=== PATIENT | female | born 2000 | race Caucasian/White ===

== ENCOUNTER 2018-03-07 14:51 | Emergency (ER) | payer OTHER ==
[2018-03-07] MEDS ORDERED: PROCHLORPERAZINE EDISYLATE INJ 10 MG/2 ML VIAL IV ONE (15:38)
[2018-03-07] MEDS ORDERED: NORMAL SALINE 500 ML IV ONE (15:38)
[2018-03-07] MEDS ORDERED: KETOROLAC TROMETHAMINE INJ/PF 30 MG/1 ML SDV IV ONE (15:38)
[2018-03-07] MEDS ORDERED: DIPHENHYDRAMINE HCL 50 MG/ML VIAL IV ONE (15:38)
--- NOTE | 2018-03-07 15:39 | ER Document Report ---
ED Medical Screen (RME) - General Chief Complaint: Headache Stated Complaint: HEADACHE,NAUSEA,DIZZINESS Time Seen by Provider: 03/07/18 15:29 Notes: 17-year-old female to the emergency department complaining of a "migraine". Long-standing history of migraines. Not the worst headache of her life. Did not come on suddenly. Has ache has been present on and off for most of the week. No other major symptoms at this time. I have greeted and performed a rapid initial assessment of this patient. A comprehensive ED assessment and evaluation of the patient, analysis of test results and completion of the medical decision making process will be conducted by additional ED providers. TRAVEL OUTSIDE OF THE [place] IN LAST 30 DAYS: No - Related Data Allergies/Adverse Reactions: latex Allergy (Verified 03/07/18 15:17) Sulfa (Sulfonamide Antibiotics) Allergy (Verified 03/07/18 15:17) sulfamethoxazole [From Bactrim] Allergy (Verified 03/07/18 15:17) trazodone Allergy (Verified 03/07/18 15:17) trimethoprim [From Bactrim] Allergy (Verified 03/07/18 15:17) Past Medical History - Social History Chew tobacco use (# tins/day): No Frequency of alcohol use: None Drug Abuse: None Neurological Medical History: Reports: Hx Migraine Renal/ Medical History: Denies: Hx Peritoneal Dialysis Past Surgical History: Reports: Hx Tonsillectomy Physical Exam - Vital signs Vitals: Temp Pulse Resp BP Pulse Ox 97.6 F 73 16 125/83 98 03/07/18 15:02 03/07/18 15:02 03/07/18 15:02 03/07/18 15:02 03/07/18 15:02 Course - Vital Signs Vital signs: Temp Pulse Resp BP Pulse Ox 97.6 F 73 16 125/83 98 03/07/18 15:02 03/07/18 15:02 03/07/18 15:02 03/07/18 15:02 03/07/18 15:02
--- NOTE | 2018-03-07 16:42 | ER Document Report ---
ED General - General Chief Complaint: Headache Stated Complaint: HEADACHE,NAUSEA,DIZZINESS Time Seen by Provider: 03/07/18 15:29 Notes: 17-year-old female with a history of chronic headaches presents to the ER complaining of a headache for the last several weeks. Is been progressively getting worse. There is no thunderclap there is no rapid onset. States is not the worst headache of her life she is a gets a headache once a month. However this 1 is lasted for longer than her normal headaches do. It is similar in character. She describes throbbing in both temples. Denies visual changes. Has some nausea denies vomiting. Denies fever chills or neck stiffness. States that time she will have some changes to her vision and feels a little confused from time to time she has not seen a neurologist for her chronic headaches in the past. TRAVEL OUTSIDE OF THE [place] IN LAST 30 DAYS: No - Related Data Allergies/Adverse Reactions: latex Allergy (Verified 03/07/18 15:17) Sulfa (Sulfonamide Antibiotics) Allergy (Verified 03/07/18 15:17) sulfamethoxazole [From Bactrim] Allergy (Verified 03/07/18 15:17) trazodone Allergy (Verified 03/07/18 15:17) trimethoprim [From Bactrim] Allergy (Verified 03/07/18 15:17) Past Medical History - Social History Smoking Status: Never Smoker Chew tobacco use (# tins/day): No Frequency of alcohol use: None Drug Abuse: None Family History: None Patient has suicidal ideation: No Patient has homicidal ideation: No Neurological Medical History: Reports: Hx Migraine Renal/ Medical History: Denies: Hx Peritoneal Dialysis Past Surgical History: Reports: Hx Tonsillectomy Review of Systems - Review of Systems Constitutional: denies: Chills, Fever EENT: Blurred vision Cardiovascular: denies: Dyspnea Respiratory: denies: Short of breath Gastrointestinal: Nausea. denies: Abdominal pain, Vomiting Musculoskeletal: denies: Back pain Neurological/Psychological: Headaches. denies: Weakness, Paralysis, Seizure, Speech impairment, Numbness, Tingling -: Yes All other systems reviewed and negative Physical Exam - Vital signs Vitals: Temp Pulse Resp BP Pulse Ox 97.6 F 73 16 125/83 98 03/07/18 15:02 03/07/18 15:02 03/07/18 15:02 03/07/18 15:02 03/07/18 15:02 - Notes Notes: GENERAL_APPEARANCE: well_nourished, alert, cooperative, appears uncomfortable VITALS: reviewed, see vital signs table. HEAD: no_swelling\tenderness on the head. EYES: PERRL, EOMI, conjunctiva_clear. NOSE: no_nasal_discharge. MOUTH: (-)decreased moisture. THROAT: no_tonsilar_inflammation, no_airway_obstruction. no_lymphadenopathy NECK: supple, no_neck_tenderness, (-)thyromegaly. BACK: no_back_tenderness. CHEST_WALL: no_chest_tenderness. LUNGS: no_wheezing, no_rales, no_rhonchi, (-)accessory muscle use, good air exchange bilateral. HEART: normal_rate, normal_rhythm, normal_S1, normal_S2, (-)S3, (-)S4, no_ murmur, no_rub. ABDOMEN: normal_BS, soft, no_abd_tenderness, (-)guarding, (-)rebound, no_ organomegaly, no_abd_masses. EXTREMITIES: good pulses in all_extremities, no_swelling\tenderness in the extremities, no_edema. SKIN: warm, dry, good_color, no_rash. MENTAL_STATUS: speech_clear, oriented_X_3, normal_affect, responds_ appropriately to questions. NEURO: Neg Motor or Sensory Deficits on exam, CN 2-12 intact, DTR 2+ symmetric x 4, No cerbellar signs Course - Re-evaluation Re-evalutation: 03/07/18 16:41 Patient does have some photosensitivity. She is otherwise doing well she was given IV fluids pain and nausea medicine. She has not had a CAT scan of her brain in 10 years we will repeat a CAT scan because she does have monthly headaches. She has been lost to follow-up. She is 5 months . Had no complications with that. She is not breast-feeding. She has no fever no chills no neck stiffness no purpura no petechiae nothing to suggest a [employer] infectious source. There is no thunderclap no rapid onset not worst headache of life similar character to prior headaches just the duration is longer my suspicion for subarachnoid hemorrhage is lower. She was given fluids and pain medicine feels much better she is acutely neurologically intact and comfortable going home. I suggested that she follow- up with neurology for her chronic headaches. 03/07/18 18:24 She feels much better. She is comfortable going home will prescribe her Reglan and instructed her to use it with Benadryl and ibuprofen when she has headaches. - Vital Signs Vital signs: Temp Pulse Resp BP Pulse Ox 98.0 F 69 16 110/57 L 100 03/07/18 18:16 03/07/18 18:16 03/07/18 18:16 03/07/18 18:16 03/07/18 18:16 - Laboratory Laboratory results interpreted by me: 03/07/18 17:06 Urine Protein 100 H Discharge - Discharge Clinical Impression: Headache Qualifiers: Headache type: unspecified Headache chronicity pattern: acute headache Intractability: not intractable Qualified Code(s): R51 - Headache Condition: Good Disposition: HOME, SELF-CARE Instructions: Reglan ([facility]), Headache ([facility]) Additional Instructions: Please take the Reglan with Benadryl and ibuprofen for your headaches. Prescriptions: Metoclopramide HCl [Reglan 10 mg Tablet] 1 tab PO QID PRN #30 tablet PRN Reason:
--- NOTE | 2018-03-07 17:12 | RADIOLOGY REPORT (SQ) ---
EXAM DESCRIPTION: CT HEAD WITHOUT COMPLETED DATE/TIME: 03/07/2018 5:01 pm REASON FOR STUDY: Headache COMPARISON: None. TECHNIQUE: Axial images acquired through the brain without intravenous contrast. Images reviewed wi th bone, brain and subdural windows. Additional sagittal and coronal reconstructions were generated. Images stored on PACS. All CT scanners at this facility use dose modulation, iterative reconstruction, and/or weight based d osing when appropriate to reduce radiation dose to as low as reasonably achievable (ALARA). [facility]: Dose Right [facility]: CareDose [facility]: Dose Right [facility]: Teradose 4D [facility]: SurveySnap RADIATION DOSE: CT Rad equipment meets quality standard of care and radiation dose reduction techniq ues were employed. CTDIvol: 53.2 mGy. DLP: 1070 mGy-cm. mGy. LIMITATIONS: None. FINDINGS: VENTRICLES: Normal size and contour. CEREBRUM: No masses. No hemorrhage. No midline shift. No evidence for acute infarction. Normal gra y/white matter differentiation. No areas of low density in the white matter. CEREBELLUM: No masses. No hemorrhage. No alteration of density. No evidence for acute infarction. EXTRAAXIAL SPACES: No fluid collections. No masses. ORBITS AND GLOBE: No intra- or extraconal masses. Normal contour of globe without masses. CALVARIUM: No fracture. PARANASAL SINUSES: No fluid or mucosal thickening. SOFT TISSUES: No mass or hematoma. OTHER: No other significant finding. IMPRESSION: NORMAL BRAIN CT WITHOUT CONTRAST. EVIDENCE OF ACUTE STROKE: NO. COMMENT: Quality ID # [id number]: Final reports with documentation of one or more dose reduction techniques (e.g., Automated exposure control, adjustment of the mA and/or kV according to patient size, use of iterative reconstruction technique) TECHNICAL DOCUMENTATION: JOB ID: [id number] [employer]- All Rights Reserved Reading location - IP/workstation name: [email or web address]
[2018-03-07 17:34] LABS: AMORPHOUS SEDIMENT,URINE TRACE /HPF; APPEARANCE,URINE CLOUDY; BILIRUBIN,URINE NEGATIVE (NEGATIVE); COLOR,URINE YELLOW; GLUCOSE, URINE NEGATIVE (NEGATIVE); KETONES,URINE NEGATIVE (NEGATIVE); LEUKOCYTE ESTERASE,URINE NEGATIVE (NEGATIVE); NITRITE,URINE NEGATIVE (NEGATIVE); PROTEIN,URINE 100 mg/dL (NEGATIVE); URINE SPECIFIC GRAVITY 1.024; UROBILINOGEN,URINE NEGATIVE mg/dL (<2.0)
[2018-03-07 18:18] VITALS: BP 110/57
== END 2018-03-07 18:43 | disposition home or self-care (01) ==
LOC: ER 14:51
DX: R51 Headache (principal); R11.0 Nausea; R42 Dizziness and giddiness; Z91.040 Latex allergy status; Z88.2 Allergy status to sulfonamides; Z88.3 Allergy status to other anti-infective agents
CPT/HCPCS: 99284; 96361; 96374; 96375; 81025; 81001; 70450; J1200; J1885; J0780; J7040

== ENCOUNTER → 2019-11-05 | Outpatient (CLI) | payer OTHER ==
--- NOTE | 2019-11-05 17:49 | RADIOLOGY REPORT (SQ) ---
EXAM DESCRIPTION: L SPINE WHOLE IMAGES COMPLETED DATE/TIME: 11/05/2019 4:57 pm REASON FOR STUDY: M54.5 LOW BACK PAIN M54.5 LOW BACK PAIN COMPARISON: None. NUMBER OF VIEWS: Five views including obliques. TECHNIQUE: AP, lateral, oblique, and sacral radiographic images acquired of the lumbar spine. LIMITATIONS: None. FINDINGS: MINERALIZATION: Normal. SEGMENTATION: Normal. No transitional anatomy. ALIGNMENT: Normal. VERTEBRAE: Maintained height. No fracture or worrisome bone lesion. DISCS: Preserved height. No significant osteophytes or end plate irregularity. POSTERIOR ELEMENTS: Pedicles and facets are intact. No pars defect or posterior arch defects. HARDWARE: None in the spine. PARASPINAL SOFT TISSUES: Normal. PELVIS: Intact as visualized. No fractures or worrisome bone lesions. SI joints intact. OTHER: No other significant finding. IMPRESSION: NORMAL 5 VIEW LUMBAR SPINE. TECHNICAL DOCUMENTATION: JOB ID: [id number] 2010 [employer]- All Rights Reserved Reading location - IP/workstation name: [email or web address]
== END ==
LOC: RAD 16:41
PROVIDERS: ATTEND Family Medicine
DX: M54.5 Low back pain (principal)
CPT/HCPCS: 72110